=== PATIENT | female | born 1985 | race Caucasian/White ===

== ENCOUNTER 2020-12-23 16:14 | Inpatient (IN) | payer OTHER ==
[~2020-12-23] VITALS: Ht 165.1 cm; Wt 90.0 kg
[2020-12-23 16:46] LABS: MEAN CORPUSCULAR HEMOGLOBIN 31.9 pg (27.0-34.8); MEAN CORPUSCULAR HGB CONC 33.9 g/dL (32.4-35.8); MEAN PLATELET VOLUME 7.6 fL (7.4-10.4); PLATELET COUNT 199 x10^3/uL (130-400); RED BLOOD COUNT 4.31 x10^6/uL (3.82-5.3); RED CELL DISTRIBUTION WIDTH 13.4 % (9.6-15.2)
[2020-12-23 16:48] LABS: MICROSCOPIC INDICATED
[2020-12-23 16:57] LABS: ANION GAP 6 mmol/L (5-15); CALCIUM 8.5 mg/dL (8.5-10.1); CHLORIDE 103 mmol/L (98-107)
[2020-12-23 17:01] LABS: ALANINE AMINOTRANSFERASE 24 U/L (12-78); ALKALINE PHOSPHATASE 379 U/L (45-117); BILIRUBIN, DIRECT 0.2 mg/dL (0.1-0.2); BILIRUBIN,TOTAL 0.3 mg/dL (0.2-1.0); CREATININE 0.58 mg/dL (0.55-1.02); TOTAL PROTEIN 5.9 g/dL (6.4-8.2)
[2020-12-23] MEDS ORDERED: BETAMETHASONE 6 MG/ML, 5ML IM ONE ×2 (17:16→17:30)
[2020-12-23] MEDS: BETAMETHASONE 6 MG/ML, 5ML IM SCH (17:19)
[2020-12-23 17:26] LABS: <PLATELET ESTIMATE> ADEQUATE; <PLT MORPHOLOGY> NORMAL PLT MORPH; BAND#(MANUAL) 0.18 x10^3/uL; BANDS%(MANUAL) 2 % (0-7); EOS#(MANUAL) 0.36 x10^3/uL (0.0-0.4); EOS% (MANUAL) 4 % (1-7); LYMPH#(MANUAL) 1.91 x10^3/uL (1-3.4); LYMPHS% (MANUAL) 21 % (22-44); MONOS#(MANUAL) 0.73 x10^3/uL (0.3-2.7); MONOS% (MANUAL) 8 % (2-9); SEG#(MANUAL) 5.92 x10^3/uL (1.8-6.8); SEGS% (MANUAL) 65 % (42-75)
[2020-12-23 17:27] LABS: <RBC MORPHOLOGY> NORMAL
[2020-12-23] MEDS ORDERED: PLEASE ENTER HEIGHT AND WEIGHT MC SCH (17:30)
[2020-12-23] MEDS ORDERED: ACETAMINOPHEN 325 MG TABLET PO PRN (19:00)
[2020-12-24 07:38] LABS: BASOPHILS % (AUTO) 1 % (0-1); EOSINOPHILS % (AUTO) 0 % (1-7); LYMPHOCYTES % (AUTO) 14 % (22-44); MEAN CORPUSCULAR HEMOGLOBIN 31.6 pg (27.0-34.8); MEAN CORPUSCULAR HGB CONC 33.5 g/dL (32.4-35.8); MEAN PLATELET VOLUME 7.8 fL (7.4-10.4); MONOCYTES % (AUTO) 4 % (2-9); NEUTROPHILS % (AUTO) 81 % (42-75); PLATELET COUNT 223 x10^3/uL (130-400); RED BLOOD COUNT 4.54 x10^6/uL (3.82-5.3); RED CELL DISTRIBUTION WIDTH 13.6 % (9.6-15.2)
[2020-12-24 07:42] LABS: ALANINE AMINOTRANSFERASE 25 U/L (12-78); ALBUMIN 2.4 g/dL (3.4-5.0); ANION GAP 13 mmol/L (5-15); BILIRUBIN, DIRECT 0.1 mg/dL (0.1-0.2); CALCIUM 8.6 mg/dL (8.5-10.1); CHLORIDE 101 mmol/L (98-107); CREATININE 0.79 mg/dL (0.55-1.02)
[2020-12-24 07:44] LABS: ALKALINE PHOSPHATASE 407 U/L (45-117); BILIRUBIN,TOTAL 0.4 mg/dL (0.2-1.0); TOTAL PROTEIN 6.4 g/dL (6.4-8.2)
[2020-12-24 08:30] VITALS: BP 120/70
[2020-12-24] MEDS ORDERED: FERROUS SULFATE 325 MG TABLET PO SCH (09:30)
[2020-12-24] MEDS: ASPIRIN 81 MG TABLET CHEW PO SCH (12:35)
[2020-12-24] MEDS: FOLIC ACID 1 MG TABLET PO SCH (12:36)
[2020-12-24] MEDS: PRENATAL VIT/IRON/FA 1 EACH TABLET PO SCH (12:39)
[2020-12-24] MEDS: CALCIUM/VITAMIN D3 250-125 TABLET PO SCH (14:18)
[2020-12-24] MEDS: BETAMETHASONE 6 MG/ML, 5ML IM SCH (17:25)
[2020-12-25 06:13] LABS: MICROSCOPIC INDICATED
[2020-12-25 06:33] LABS: ALBUMIN 2.1 g/dL (3.4-5.0); ANION GAP 12 mmol/L (5-15); BILIRUBIN, DIRECT 0.1 mg/dL (0.1-0.2); CALCIUM 8.2 mg/dL (8.5-10.1); CHLORIDE 98 mmol/L (98-107)
[2020-12-25 06:35] LABS: ALANINE AMINOTRANSFERASE 22 U/L (12-78); ALKALINE PHOSPHATASE 356 U/L (45-117); BILIRUBIN,TOTAL 0.3 mg/dL (0.2-1.0); CREATININE 0.63 mg/dL (0.55-1.02); TOTAL PROTEIN 5.7 g/dL (6.4-8.2)
[2020-12-25 06:40] LABS: BASOPHILS % (AUTO) 0 % (0-1); EOSINOPHILS % (AUTO) 0 % (1-7); LYMPHOCYTES % (AUTO) 13 % (22-44); MEAN CORPUSCULAR HEMOGLOBIN 32.3 pg (27.0-34.8); MEAN CORPUSCULAR HGB CONC 34.3 g/dL (32.4-35.8); MEAN PLATELET VOLUME 8.2 fL (7.4-10.4); MONOCYTES % (AUTO) 4 % (2-9); NEUTROPHILS % (AUTO) 83 % (42-75); PLATELET COUNT 178 x10^3/uL (130-400); RED BLOOD COUNT 4.02 x10^6/uL (3.82-5.3); RED CELL DISTRIBUTION WIDTH 13.6 % (9.6-15.2)
[2020-12-25 06:44] LABS: CREATININE,URINE RANDOM 45.8 mg/dL
[2020-12-25] MEDS ORDERED: ASPI-963 PO (07:31)
[2020-12-25] MEDS: PRENATAL VIT/IRON/FA 1 EACH TABLET PO SCH (08:24)
[2020-12-25] MEDS: CALCIUM/VITAMIN D3 250-125 TABLET PO SCH (08:24)
[2020-12-25] MEDS: ASPIRIN 81 MG TABLET CHEW PO SCH (08:24)
[2020-12-25] MEDS: FOLIC ACID 1 MG TABLET PO SCH (08:24)
== END 2020-12-25 09:40 | disposition home or self-care (01) | DRG 832 ==
LOC: LDOP 16:14 → LDIP 19:37
PROVIDERS: ADMIT Obstetrics & Gynecology; ATTEND Obstetrics & Gynecology
DX: O30.043 Twin pregnancy, dichorionic/diamniotic, third trimester (principal); O12.13 Gestational proteinuria, third trimester; Z3A.34 34 weeks gestation of pregnancy; Z20.822 Contact with and (suspected) exposure to COVID-19
CPT/HCPCS: 36415; 76819; 80053; 81001; 82248; 82570; 84156; 84550; 85025; 87635; G0378; J0702